=== PATIENT | female | born 1975 | race Caucasian/White ===

== ENCOUNTER 2019-12-16 15:35 | Outpatient (CLI) | payer OTHER, SELFPAY ==
[2019-12-16 17:03] LABS: Free T4 Free Thyroxine 0.86 ng/mL (0.78-2.19)
[2019-12-19 04:25] LABS: Prolactin 65.2 ng/mL (***)
== END 2019-12-16 15:36 | disposition home or self-care (01) ==
LOC: ANHLAB 15:39
PROVIDERS: Visit Provider Internal Medicine Endocrinology, Diabetes & Metabolism
DX: E22.1 Hyperprolactinemia (principal)
CPT/HCPCS: 36415; 84146; 84439; 84443

== ENCOUNTER 2020-07-13 16:09 | Outpatient (CLI) | payer OTHER, SELFPAY ==
[2020-07-20 12:20] LABS: Prolactin 32.2 ng/mL (***)
== END 2020-07-13 16:10 | disposition home or self-care (01) ==
LOC: ANHLAB 16:11
PROVIDERS: PCP Internal Medicine Endocrinology, Diabetes & Metabolism; Visit Provider Internal Medicine Endocrinology, Diabetes & Metabolism
DX: D35.2 Benign neoplasm of pituitary gland (principal)
CPT/HCPCS: 36415; 84146; 84443